=== PATIENT | female | born 1960 | race American Indian/Alaskan Native ===

== ENCOUNTER 2017-06-24 11:08 | Day surgery (SDC) | payer OTHER ==
[~2017-06-24 11:08] MED LIST: NACL 0.9% 1000 ML 1,000 ML ONE
[2017-06-24] MEDS ORDERED: NACL 0.9% 1000 ML 1,000 ML IV SCH (12:00)
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
--- NOTE | 2017-06-24 13:09 | Anesthesia Day of Surgery ---
Anesthesia Day of Surgery - Day of Surgery Patient Examined: Yes Patient H&P Reviewed: Yes Patient is NPO: Yes
[2017-06-24] MEDS ORDERED: DIPRIVAN 10 MG/ML IV ONE ×2 (14:38)
[2017-06-24] MEDS ORDERED: WATER FOR IRRIG STERILE IR ONE (14:41)
[2017-06-24] MEDS ORDERED: WATER FOR IRRIG STERILE ONE (14:54)
--- NOTE | 2017-06-24 15:23 | Operative Report ---
Operative Report Operative Report: Date of procedure: 06/24/2017 Procedure: Colonoscopy with hot biopsy polypectomy and polyp ablation.. Attending physician: Ángel Bowling MD Cryptographic Machine Operator: Ángel Bowling MD Indication: Patient is a 57-year-old female who presents for screening colonoscopy. Patient has a past history of colon polyps. The colonoscopy serves to evaluate patient for colorectal cancer screening. Consent: Informed consent was obtained after advising the patient and family regarding nature of this procedure, its indications, potential benefits as well as possible complications including but not limited to bleeding perforation and adverse reaction to medication, infection as well as other cardiopulmonary complications. An informed written and verbal consent was then obtained after due opportunity was provided for questions and answers. Monitoring: Patient was monitored continuously with pulse oximetry and electrocardiographic recordings as well as blood pressure recordings. Vital signs remained stable throughout this procedure with no untoward events. Preoperative assessment: Patient was assessed immediately prior to this procedure for capacity to tolerate monitored anesthesia care and moderate sedation as well as general anesthesia. Patient's ASA classification is 2, Mallampati class is 2, Hyomental distance is 3. Instrument: [employer] video colonoscope Medications: Propofol given intravenously in divided doses. For details please refer to anesthesia records. Description of procedure: Patient was placed in the left lateral decubitus position after achieving sedation, a digital rectal examination was performed following which the colonoscope was introduced into the anal verge and advanced to the cecum which was identified by the cecal valve, the appendiceal orifice, as well as by the cecal strap and direct transillumination. The colonoscope was subsequently withdrawn with careful inspection of all mucosal surfaces. Patient tolerated this procedure well and was subsequently taken to the recovery room. The following findings were noted. Findings: Patient had diminutive 3 diminutive polyps in the sigmoid which were removed by hot biopsy polypectomy. Patient had a diminutive flat rectal polyp which was ablated. The rest of the colon to the cecum was normal although patient had substantial retained stool in the cecum which was irrigated. On the retroflex view at the anal verge, patient had prominent internal hemorrhoids. Impression: Diminutive sigmoid polyps which was removed by hot biopsy polypectomy. Rectal polyp which was ablated. Internal hemorrhoids. Plan: Follow pathology report High-fiber diet. Repeat colonoscopy in 5 years.
--- NOTE | 2017-06-24 15:24 | Discharge Summary ---
Short Stay Discharge Plan Activity: advance as tolerated Weight Bearing Status: Weight Bear as Tolerated Diet: regular Additional Instructions: Post Sedation D/C Instructions When you return home you may resume your regular diet unless otherwise directed. -Go directly home from the hospital and rest quietly. You may resume normal activities tomorrow. -Do NOT drive, return to work, operate any machinery or make any important personal or business decisions today. -Do NOT drink any alcohol or take nerve or sleeping drugs. They add to the effects of the medicine still present in your body. Follow up with Dr. Bowling in 2 weeks to obtain pathology results and treatment plan. Follow up with: PRIMARY CARE, [Primary Care Provider] - 7 Days
[2017-06-24 15:32] VITALS: BP 146/65
== END 2017-06-24 11:09 | disposition home or self-care (01) ==
LOC: GIO 11:08
PROVIDERS: ATTEND Internal Medicine Gastroenterology
DX: Z09 Encounter for follow-up examination after completed treatment for conditions other than malignant neoplasm (principal); K63.5 Polyp of colon; K64.8 Other hemorrhoids; K59.00 Constipation, unspecified; G47.30 Sleep apnea, unspecified; I10 Essential (primary) hypertension; E66.9 Obesity, unspecified; Z68.32 Body mass index [BMI] 32.0-32.9, adult; Z86.010 Personal history of colon polyps
CPT/HCPCS: 45384; 45388; 88305; J2704; J7030